=== PATIENT | female | born 1995 | race Hispanic/Latino ===

== ENCOUNTER → 2022-11-21 19:17 | Outpatient (ROUT) | payer OTHER, SELFPAY ==
[2022-11-21 19:34] LABS: Hematocrit 37.9 % (36-46); Hemoglobin 12.4 g/dL (12.0-16.0); Mean Corpuscular HGB Conc 32.7 % (30-36); Mean Corpuscular Hemoglobin 29.4 PG (26-34); Mean Corpuscular Volume 89.9 fL (80-100); Platelet Count 218 X10^3/uL (150-400); Red Blood Cell Count 4.22 X10^6/uL (4.0-5.2); Red Cell Distribution Width 12.9 % (11.6-14.8); White Blood Cell Count 7.2 X10^3/uL (4.5-11.0)
[2022-11-21 19:47] LABS: Hemoglobin A1C% w Est Avg Glu 5.1 % (4.0-6.0)
[2022-11-22 20:22] LABS: HIV 1 & 2 Ab/Ag 4th Gen Combo NEGATIVE (NEGATIVE); Hep C Virus Ab w/Reflex Quant NEGATIVE s/c (NEGATIVE); Hepatitis B Surface Antigen NEGATIVE s/c (NEGATIVE); Rubella Antibody IgG 22.6 IU/mL (>15)
[2022-11-23 04:28] LABS: RPR Screen Non Reactive (Non Reactive)
[2022-11-23 10:18] LABS: Var-Zoster Immunity Screen 191 index (Immune >165)
== END ==
PROVIDERS: Visit Provider Advanced Practice Midwife
DX: Z34.90 Encounter for supervision of normal pregnancy, unspecified, unspecified trimester (principal)
CPT/HCPCS: 83036; 85027; 86592; 86762; 86787; 86803; 86850; 86900; 86901; 87340; 87389

== ENCOUNTER → 2023-01-23 16:01 | Outpatient (CLI) | payer OTHER, SELFPAY ==
--- NOTE | 2023-01-23 16:02 | DI.US.S_ITS ---
PROCEDURE: US OB >= 14 WEEKS FETUS INDICATIONS: ROUTINE SCREENING OUTSIDE/PRIOR DATING DATA: Last menstrual period (LMP): 09/04/2022. LMP-based estimated date of delivery (ANJELICA): 06/11/2023. TECHNIQUE: Real-time scanning was performed of the fetus, with image documentation and biometric measurements. Endovaginal scanning: No COMPARISON: None. FINDINGS: General: A single living intrauterine gestation is present. Presentation: Breech Placenta: Placental position is anterior , without previa. Amniotic fluid index: 13.2 cm, normal range is 5-24 cm. Single deepest vertical pocket is 3.6 cm. heart rate: 136 beats per minute. Maternal cervical canal: 4.2 cm long. Normal lower limit is 2.5 cm. biometrics: Biparietal diameter: 49 mm; 20 weeks 6 days Head circumference: 182 mm; 20 weeks 4 days Abdominal circumference: 155 mm; 20 weeks 5 days Femur length: 35 mm; 21 weeks 0 days Clinically estimated gestational age: 20 weeks 1 day Composite gestational age from present scan: 20 weeks 6 days Estimated weight and percentile: 376 g, which is at the 80th percentile for gestational age Anatomic survey: Neuro: Ventricles are non-dilated at less than 10 mm. Cisterna magna is normal at 3-11 mm. Cerebellum is normal in size and morphology. Nuchal skin fold: Normal at less than 6 mm between 14-21 weeks gestational age. Face: Nose and lips, facial profile are normal. Spine: No evidence for spina bifida. Heart: 4-chambered heart is present, with normal ventricular outflow tracts. Diaphragm: Diaphragm is intact. Stomach: Left-sided stomach is present. Kidneys: No hydronephrosis. Normal is less than 5 mm in 2nd trimester, less than 7 mm in 3rd trimester. Cord: 3-vessel cord has orthotopic insertion. Bladder: Normal in size. Extremities: All 4 extremities identified. IMPRESSION: 1. Single living intrauterine gestation. 2. Normal survey of anatomy. We strive to produce accurate, complete, and clear reports of imaging services. To assist us in improving patient care, this report was composed using standard report templates and voice recognition software. Therefore, it may contain abnormal punctuation, insertions and/or omissions. Occasional wrong-word or sound-alike substitutions may occur. Though we review the report and make efforts to correct it, we do recommend that the report be read carefully in proper context to recognize any text inaccuracies. Dictated by: Clyde Torres M.D. on 01/24/2023 at 13:25 Transcribed by: [email or web address] on 01/24/2023 at 13:27 Approved by: Clyde Torres M.D. on 01/24/2023 at 16:26
== END ==
PROVIDERS: Referring Provider Advanced Practice Midwife; Visit Provider Advanced Practice Midwife
DX: Z34.82 Encounter for supervision of other normal pregnancy, second trimester (principal); Z3A.17 17 weeks gestation of pregnancy
CPT/HCPCS: 76811